=== PATIENT | female | born 1935 | race Two or more races ===

== ENCOUNTER 2017-08-17 12:35 | Outpatient (CLI) | payer OTHER | END 2017-08-17 14:11 | disposition home or self-care (01) | LOC: SONOGRAMA 12:35 | DX: N63.21 Unspecified lump in the left breast, upper outer quadrant (principal) ==

== ENCOUNTER 2017-09-21 07:00 | Day surgery (SDC) | payer OTHER ==
[~2017-09-21] VITALS: Ht 152.4 cm; Wt 59.0 kg
[~2017-09-21 07:00] MED LIST: ASA81 MG PO; AVAPRO300 MG PO; FOLIC ACID1 MG PO; INDUR PO; ZOCOR5 MG PO
== END 2017-09-22 09:12 | disposition home or self-care (01) ==
LOC: SURH 07:00 → CIR.AMB 07:00 → EDSTATUS 09:00 → SURH 09:00 → O/R 12:08 → SURH 12:08 → CIR.AMB 09-22 09:12 → O/R 09-22 11:02 → SURH 09-22 11:02
DX: C50.912 Malignant neoplasm of unspecified site of left female breast (principal)